=== PATIENT | male | born 1985 | race Caucasian/White ===

== ENCOUNTER 2019-03-21 21:59 | Inpatient (IN) | payer SELFPAY ==
--- NOTE | 2019-03-21 23:01 | EDPHYS ---
Physician Documentation [facility] Name: Brandan Small Age: 33 yrs Sex: Male : 1985 Arrival Date: 03/21/2019 Time: 22:00 Bed 2 Private MD: ED Physician Abraham Camp HPI: 03/22 04:00 This 33 yrs old Male presents to ER via Ambulatory with complaints of Spider kdr Bite. 04:00 The patient presents with cellulitis of the dorsal aspect of distal phalanx of left kdr middle finger, dorsal aspect of middle phalanx of left middle finger and dorsal aspect of proximal phalanx of left middle finger, the patient presents with a swollen area of the dorsal aspect of distal phalanx of left middle finger, dorsal aspect of middle phalanx of left middle finger and dorsal aspect of proximal phalanx of left middle finger. Description: erythematous, hot, raised, swollen, tense, warm. Onset: The symptoms/episode began/occurred gradually, 1 week(s) ago. Possible cause(s): insect sting, spider bite. Associated signs and symptoms: Pertinent positives: erythema, swelling. Modifying factors: the symptoms are alleviated by nothing, remaining still, the symptoms are aggravated by movement, pressure, squeezing the lesion and expressing the contents, touching. Severity of symptoms: At their worst the symptoms were mild, moderate, just prior to arrival, in the emergency department the symptoms are unchanged. The patient has not experienced similar symptoms in the past. The patient has not recently seen a physician. Historical: - Allergies: 03/21 22:17 No Known Allergies; ea - Home Meds: 22:17 None [Active]; ea - PMHx: 22:17 None; ea - PSHx: 22:17 None; ea - Immunization history:: Adult Immunizations up to date. - Social history:: Smoking status: Patient/guardian denies using tobacco. - Ebola Screening: : No symptoms or risks identified at this time. ROS: 03/22 04:00 Constitutional: Negative for fever, chills, and weight loss, Eyes: Negative for injury, kdr pain, redness, and discharge, Neck: Negative for injury, pain, and swelling, Cardiovascular: Negative for chest pain, palpitations, and edema, Respiratory: Negative for shortness of breath, cough, wheezing, and pleuritic chest pain, Abdomen/GI: Negative for abdominal pain, nausea, vomiting, diarrhea, and constipation, Back: Negative for injury and pain, : Negative for injury, bleeding, discharge, and swelling, Skin: Negative for injury, rash, and discoloration, Neuro: Negative for headache, weakness, numbness, tingling, and seizure activity. Psych: Negative for depression, anxiety, suicide ideation, homicidal ideation, and hallucinations, Allergy/Immunology: Negative for hives, rash, and allergies, Endocrine: Negative for neck swelling, polydipsia, polyuria, polyphagia, and marked weight changes, Hematologic/Lymphatic: Negative for swollen nodes, abnormal bleeding, and unusual bruising. MS/extremity: Positive for decreased range of motion, erythema, pain, swelling, tenderness, warmth, of the dorsal aspect of distal phalanx of left middle finger, dorsal aspect of middle phalanx of left middle finger and dorsal aspect of proximal phalanx of left middle finger. Skin: Positive for abscess, cellulitis, erythema, swelling, of the dorsal aspect of distal phalanx of left middle finger, dorsal aspect of middle phalanx of left middle finger and dorsal aspect of proximal phalanx of left middle finger. Exam: 04:00 Constitutional: This is a well developed, well nourished patient who is awake, alert, kdr and in no acute distress. 04:00 Musculoskeletal/extremity: Extremities: grossly normal except: noted in the dorsal aspect of distal phalanx of left middle finger, dorsal aspect of middle phalanx of left middle finger and dorsal aspect of proximal phalanx of left middle finger: decreased ROM, erythema, pain, swelling, tenderness. Vital Signs: 03/21 22:17 BP 148 / 97; Pulse 91; Resp 18; Temp 97.8; Pulse Ox 100% ; Weight 83.91 kg; Height 5 ea ft. 5 in. (165.10 cm); Pain 9/10; 03/22 00:30 BP 127 / 84; Pulse 79; Resp 18; Temp 97.7(TE); Pulse Ox 99% on R/A; ea 01:30 BP 116 / 82; Pulse 77; Resp 18; Pulse Ox 99% on R/A; ea 02:00 BP 120 / 82; Pulse 74; Resp 16; Temp 97.9; Pulse Ox 100% ; ea 03/21 22:17 Body Mass Index 30.79 (83.91 kg, 165.10 cm) ea MDM: 03/21 23:00 Patient medically screened. kdr 23:02 Physician consultation: Mo Gale MD would like admission per Dr. Ashutosh Boone. kdr 03/22 04:00 Data reviewed: vital signs, nurses notes, lab test result(s), radiologic studies. kdr Counseling: I had a detailed discussion with the patient and/or guardian regarding: the historical points, exam findings, and any diagnostic results supporting the discharge/admit diagnosis, lab results, radiology results, the need for further work-up and treatment in the hospital. 03/21 22:48 Order name: CBC with Diff ea 03/21 22:48 Order name: BMP ea 03/21 22:48 Order name: XRAY Hand LEFT 2 View ea 03/22 00:39 Order name: Regular EDMS 03/22 00:41 Order name: CONS Physician Consult EDMS Administered Medications: 03/21 23:23 Drug: Clindamycin 900 mg Route: IVPB; Infused Over: 30 mins; Site: right antecubital; ea 23:57 Follow up: Response: No adverse reaction; IV Status: Completed infusion; IV Intake: 50mlea 23:23 Drug: Bactrim (160 mg-800 mg (DS) 1 tablet Route: PO; ea 23:57 Follow up: Response: No adverse reaction ea 23:23 Drug: Pepcid 20 mg Route: IVP; Site: right antecubital; ea 23:57 Follow up: Response: No adverse reaction ea 23:50 Drug: Zofran 4 mg Route: IVP; Site: right hand; ea 03/22 00:30 Follow up: Response: No adverse reaction; Nausea is decreased ea 03/21 23:54 Drug: morphine 4 mg Route: IVP; Site: right hand; ea 03/22 00:30 Follow up: Response: No adverse reaction; RASS: Alert and Calm (0) ea Disposition: 03/21/19 23:00 Hospitalization ordered by Ashutosh Boone for Inpatient Admission. Preliminary diagnosis is Flexor Tenosynovitis: Left middle finger. - Bed requested for Telemetry/MedSurg (observation). - Status is Inpatient Admission. ea - Condition is Fair. - Problem is new. - Symptoms are unchanged. UTI on Admission? No Signatures: Dispatcher [employer] EDMS Abraham Camp MD MD kdr Garcia, Cindy, RN RN cg Faye Pruitt RN RN ea Corrections: (The following items were deleted from the chart) 00:39 03/21 23:00 Hospitalization Ordered by Ashutosh Boone for Inpatient Admission. cg Preliminary diagnosis is Flexor Tenosynovitis: Left middle finger. Bed requested for Telemetry/MedSurg (observation). Status is Inpatient Admission. Condition is Fair. Problem is new. Symptoms are unchanged. UTI on Admission? No. kdr 03/22 02:22 00:39 03/21/2019 23:00 Hospitalization Ordered by Ashutosh Boone for Inpatient ea Admission. Preliminary diagnosis is Flexor Tenosynovitis: Left middle finger. Bed requested for Telemetry/MedSurg (observation). Status is Inpatient Admission. Condition is Fair. Problem is new. Symptoms are unchanged. UTI on Admission? No. cg
--- NOTE | 2019-03-21 23:01 | ER ---
Nurse's Notes [facility] Name: Brandan Small Age: 33 yrs Sex: Male : 1985 Arrival Date: 03/21/2019 Time: 22:00 Bed 2 Private MD: Diagnosis: Flexor Tenosynovitis: Left middle finger Presentation: 03/21 22:13 Presenting complaint: Patient states: Pt reports he was bit by an insect about a week ea ago on the left middle finger. Pt reports the area has worsened and pain has increased since. Transition of care: patient was not received from another setting of care. Onset of symptoms was March 21, 2019. Risk Assessment: Do you want to hurt yourself or someone else? Patient reports no desire to harm self or others. Initial Sepsis Screen: Does the patient meet any 2 criteria? No. Patient's initial sepsis screen is negative. Does the patient have a suspected source of infection? Yes: Skin breakdown/wound. Care prior to arrival: Reports taking left over Augmentin. 22:13 Method Of Arrival: Ambulatory ea 22:13 Acuity: DEL 3 ea Triage Assessment: 22:18 General: Appears in no apparent distress. Behavior is calm, cooperative, appropriate ea for age. Pain: Complains of pain in left hand. Historical: - Allergies: 22:17 No Known Allergies; ea - Home Meds: 22:17 None [Active]; ea - PMHx: 22:17 None; ea - PSHx: 22:17 None; ea - Immunization history:: Adult Immunizations up to date. - Social history:: Smoking status: Patient/guardian denies using tobacco. - Ebola Screening: : No symptoms or risks identified at this time. Screenin:18 Abuse screen: Denies threats or abuse. Nutritional screening: No deficits noted. ea Tuberculosis screening: No symptoms or risk factors identified. Fall Risk None identified. Assessment: 22:18 General: Appears in no apparent distress. Behavior is calm, cooperative, appropriate ea for age. Pain: Complains of pain in left hand. Neuro: Level of Consciousness is awake, alert, obeys commands, Oriented to person, place, time, situation. Cardiovascular: Patient's skin is warm and dry. Respiratory: Airway is patent Respiratory effort is even, unlabored, Respiratory pattern is regular, symmetrical. Derm: black tissue noted to dorsal aspect of proximal left middle finger with redness and edema to surrounding area. Musculoskeletal: Swelling present in left hand Reports pain in left hand. 23:00 Reassessment: Patient and/or family updated on plan of care and expected duration. Pain ea level reassessed. Patient is alert, oriented x 3, equal unlabored respirations, skin warm/dry/pink. 03/22 01:28 Reassessment: Patient and/or family updated on plan of care and expected duration. Pain ea level reassessed. Patient is alert, oriented x 3, equal unlabored respirations, skin warm/dry/pink. 02:04 Reassessment: Patient and/or family updated on plan of care and expected duration. Pain ea level reassessed. Patient is alert, oriented x 3, equal unlabored respirations, skin warm/dry/pink. Report called to Gely ROCHE. 02:20 Reassessment: Patient and/or family updated on plan of care and expected duration. Pain ea level reassessed. Patient is alert, oriented x 3, equal unlabored respirations, skin warm/dry/pink. Pt taken via wheelchair, per tech. Pt tolerating well. No s/s of pain or discomfort noted at this time. Vital Signs: 03/21 22:17 BP 148 / 97; Pulse 91; Resp 18; Temp 97.8; Pulse Ox 100% ; Weight 83.91 kg; Height 5 ea ft. 5 in. (165.10 cm); Pain 9/10; 03/22 00:30 BP 127 / 84; Pulse 79; Resp 18; Temp 97.7(TE); Pulse Ox 99% on R/A; ea 01:30 BP 116 / 82; Pulse 77; Resp 18; Pulse Ox 99% on R/A; ea 02:00 BP 120 / 82; Pulse 74; Resp 16; Temp 97.9; Pulse Ox 100% ; ea 03/21 22:17 Body Mass Index 30.79 (83.91 kg, 165.10 cm) ea ED Course: 03/21 22:00 Patient arrived in ED. ds1 22:13 Faye Pruitt, MELCHOR is Primary Nurse. ea 22:16 Triage completed. ea 22:16 Patient has correct armband on for positive identification. Bed in low position. Call ea light in reach. Side rails up X2. 22:16 Arm band placed on right wrist. Patient placed in an exam room, on a stretcher, on ea pulse oximetry. 22:25 Inserted saline lock: 20 gauge in right antecubital area, using aseptic technique. jb5 Blood collected. 22:33 Abraham Camp MD is Attending Physician. kdr 22:58 Ashutosh Boone is Hospitalizing Provider. kdr 23:28 XRAY Hand LEFT 2 View In Process Unspecified. EDMS 23:50 Inserted saline lock: 22 gauge in right hand, using aseptic technique. ea 23:58 IV discontinued, intact, bleeding controlled, No redness/swelling at site. Pressure ea dressing applied, 20 G to RAC discontinued. 03/22 01:27 No provider procedures requiring assistance completed. ea Administered Medications: 03/21 23:23 Drug: Clindamycin 900 mg Route: IVPB; Infused Over: 30 mins; Site: right antecubital; ea 23:57 Follow up: Response: No adverse reaction; IV Status: Completed infusion; IV Intake: 50mlea 23:23 Drug: Bactrim (160 mg-800 mg (DS) 1 tablet Route: PO; ea 23:57 Follow up: Response: No adverse reaction ea 23:23 Drug: Pepcid 20 mg Route: IVP; Site: right antecubital; ea 23:57 Follow up: Response: No adverse reaction ea 23:50 Drug: Zofran 4 mg Route: IVP; Site: right hand; ea 03/22 00:30 Follow up: Response: No adverse reaction; Nausea is decreased ea 03/21 23:54 Drug: morphine 4 mg Route: IVP; Site: right hand; ea 03/22 00:30 Follow up: Response: No adverse reaction; RASS: Alert and Calm (0) ea Intake: 03/21 23:57 IV: 50ml; Total: 50ml. ea Outcome: 23:00 Decision to Hospitalize by Provider. kdr 23:30 Admitted to Med/surg accompanied by tech, via wheelchair, with chart, Report called to martine Hong RN 23:30 Instructed on the need for admit. 03/22 02:20 Condition: stable ea 02:22 Patient left the ED. ea Signatures: Dispatcher [employer] EDMS Abraham Camp MD MD kdr Liseth Ferraro ds1 Donna Johnson jb5 Pruitt, Faye, RN RN ea
[2019-03-21] MEDS ORDERED: SMZ./TMP. 800/160 MG TABLET ONE (23:17)
[2019-03-21] MEDS ORDERED: CLINDAMYCIN 900MG/D5W 900 MG/50 ML IVPB IV ONE (23:17)
[2019-03-21] MEDS ORDERED: FAMOTIDINE 20 MG/2 ML VIAL IV ONE (23:17)
[2019-03-21] MEDS ORDERED: MORPHINE 4 MG/ML SYR ONE (23:41)
[2019-03-21] MEDS ORDERED: ONDANSETRON 4 MG/2 ML VIAL ONE (23:41)
--- NOTE | 2019-03-21 23:46 | P.HP ---
Certification for Inpatient Patient admitted to: Inpatient With expected LOS: >2 Midnights Practitioner: I am a practitioner with admitting privileges, knowledge of patient current condition, hospital course, and medical plan of care. Services: Services provided to patient in accordance with Admission requirements found in Title 42 Section 412.3 of the Code of Federal Regulations Patient History Date of Service: 03/22/19 Reason for admission: Painful swelling of left middle finger History of Present Illness: Their 3-year-old male with known past medical history presents to emergency department with a complaint of painful swelling of the left middle finger of about 1 week duration. Patient stated he took some old antibitoics prescribed for his for 1 week without improvement. He does not know the name of the antibiotic. He stated his finger got progressively swollen and erythematous, he developed a black spot on the dorsum of the finger and he was able to express a little amount of pus out. He stated he now has pain spreading to involve the dorsum of his hand. Dr. Gale was contacted in the ED who recommended admission under the hospitalist service for IV antibiotics and for him to consult in the morning. Patient is admitted for further management. Allergies No Known Allergies Allergy (Verified 03/22/19 02:32) Home medications list reviewed: Yes (no medications) Home Medications: NK [No Home Meds] 03/22/19 - Past Medical/Surgical History Diabetic: No Past Medical History: Patient denies medical history Past Surgical History: Patient denies surgical history - Family History Father -: Heart disease, Other (see notes) (Schizophrenia) Mother Notes: short-term memory loss. low BP. anemic - Social History Smoking Status: Current every day smoker Alcohol use: Yes CD- Drugs: No Place of Residence: Home Review of Systems Other: General: No fever, no malaise, no unintentional weight loss. Eyes: No eye discharge, Respiratory: No cough, no shortness of breath. CVS: No chest pain, no palpitation, no lightheadedness. GI: No abdominal pain, no nausea no vomit, no constipation, no diarrhea. Genitourinary: No dysuria, no urinary frequency, no incontinence, no hematuria. Neurology: No headache, no asymmetric, weakness, no problem with swallowing. Except as documented, all other systems reviewed and negative. Physical Examination - Physical Exam General: Alert, In no apparent distress, Oriented x3 HEENT: Atraumatic, Normocephalic, PERRLA, Mucous membr. moist/pink Neck: Supple, 2+ carotid pulse no bruit, JVD not distended Respiratory: Clear to auscultation bilaterally, Normal air movement Cardiovascular: No edema, Regular rate/rhythm, Normal S1 S2, No murmurs Capillary refill: <2 Seconds Gastrointestinal: Normal bowel sounds, Soft and benign, Non-distended, No tenderness Musculoskeletal: Swelling (Left middle finger), Erythema (Left middle finger), Other (Tenderness elicited on the dorsum of the left hand) Neurological: Normal strength at 5/5 x4 extr, Cranial nerves 3-12 intact, Normal affect Lymphatics: No axilla or inguinal lymphadenopathy Assessment and Plan - Problems (Diagnosis) (1) Cellulitis of finger, left Current Visit: Yes Status: Acute (2) Tenosynovitis of finger and hand Current Visit: Yes Status: Acute - Plan Admit general medical floor Start IV clindamycin and Unasyn Pain management-IV Toradol Consult to hand surgeon-Dr. Gale to evaluate. - Advance Directives Does patient have a Living Will: No Does patient have a Durable POA for Healthcare: No
[2019-03-22] MEDS ORDERED: ONDANSETRON 4 MG/2 ML VIAL IV PRN (00:30)
[2019-03-22] MEDS ORDERED: ACETAMINOPHEN 500 MG TAB PO PRN (00:30)
[2019-03-22] MEDS ORDERED: CLINDAMYCIN 600MG/D5W 600 MG/50 ML BAG IV ONE (02:19)
[2019-03-22 03:25] VITALS: BMI 30.7
[2019-03-22 04:42] LABS: Urine Appearance CLEAR; Urine Bilirubin NEGATIVE (NEG); Urine Blood NEGATIVE (NEG); Urine Color YELLOW; Urine Glucose NEGATIVE (NEG); Urine Protein NEGATIVE (NEG); Urine Urobilinogen 0.2 mg/dL (0.2-1.0)
[2019-03-22 04:43] LABS: Urine Microscopic Reflex NO UMIC
[2019-03-22] MEDS: CLINDAMYCIN INJ 600 MG in NA CHLORIDE 0.9% 50 ML IV SCH ×2 (05:01→12:00)
[2019-03-22] MEDS ORDERED: AMPICILLIN/SULBACT 1.5GM VIAL IVPB SCH (06:00)
[2019-03-22 06:04] LABS: Absolute Lymphocytes (CBC) 2.6 K/uL (0.7-4.9); Basophils % 0.5 % (0-1.3); Hematocrit 38.8 % (39.6-49.0); Lymphocytes % 23.4 % (15.3-44.8); MPV 9.4 fL (7.6-11.3); Magnesium 2.1 mg/dL (1.8-2.4); Potassium 3.6 mmol/L (3.5-5.1); RBC Red Blood Cell Count 4.36 M/uL (4.33-5.43)
--- NOTE | 2019-03-22 07:51 | RAD REPORT ---
EXAM DESCRIPTION: RAD - Hand Left 2 View - 03/21/2019 11:32 pm CLINICAL HISTORY: Left hand pain status post insect bite FINDINGS: Soft tissue swelling is present about the third digit. No bony destructive lesions seen. No fracture or dislocation is seen. A limited two-view series was obtained
[2019-03-22] MEDS ORDERED: Ringers Lactate 1,000 ML IV ONE (08:22)
[2019-03-22] MEDS ORDERED: PROPOFOL 200 MG/20 ML VIAL IV ONE (08:29)
[2019-03-22] MEDS ORDERED: FENTANYL CITR 100 MCG/2 ML ONE (08:30)
[2019-03-22] MEDS ORDERED: MIDAZOLAM HCL 2 MG/2 ML INJ ONE (08:31)
[2019-03-22] MEDS ORDERED: ONDANSETRON 4 MG/2 ML VIAL ONE (08:31)
[2019-03-22] MEDS ORDERED: LIDOCAINE 1% MPF 2 ML AMPULE ONE (08:31)
[2019-03-22] MEDS ORDERED: POTASSIUM CL SA 10 MEQ TAB PO ONE (09:00)
[2019-03-22] MEDS ORDERED: KETOROLAC 30 MG/ML INJ ONE (09:16)
[2019-03-22] MEDS ORDERED: AMPICILLIN/SULBACT 1.5 GM in NA CHLORIDE 0.9% 100 ML IVPB SCH (12:00)
[2019-03-22] MEDS: KETOROLAC 30 MG/ML INJ IV PRN (12:37)
--- NOTE | 2019-03-22 12:41 | P.PN ---
Subjective Date of Service: 03/22/19 Primary Care Provider: none Chief Complaint: Painful swelling of left middle finger Subjective: Other (Patient stable this time. Patient NPO for intervention planned.) Physical Examination - Vital Signs Temperature: 97.8 F Blood Pressure: 134/69 Pulse: 83 Respirations: 16 Pulse Ox (%): 99 - Physical Exam General: Alert, In no apparent distress, Oriented x3, Cooperative HEENT: Atraumatic Neck: Supple Respiratory: Clear to auscultation bilaterally, Normal air movement Cardiovascular: Normal pulses, Regular rate/rhythm Gastrointestinal: Normal bowel sounds, Soft and benign, Non-distended Integumentary: Other (Abscess, erythema, swelling to the left 3rd finger. Swelling also noted to the hand) Neurological: Normal speech, Normal tone, Other (Some difficulty with range of motion of the left middle finger) - Studies Laboratory Data (last 24 hrs) 03/21/19 22:24: Sodium Cancelled, Potassium Cancelled, BUN Cancelled, Creatinine Cancelled, Glucose Cancelled Medications List Reviewed: Yes Assessment & Plan Discharge Plan: Home Plan to discharge in: 48 Hours Physician Review Additional Text: Impression: Left middle finger cellulitis with abscess likely related to spider bite Plan: Left middle finger cellulitis with abscess likely related to spider bite: Will continue with IV antibiotic therapy. Cultures obtained. Plastic surgery to take patient to the operating room today for irrigation and debridement. Will discuss with plastic surgery on plan of care. Would prefer to wait until cultures are finalized before discharge. Anticipate discharge in the next 2-3 days pending clinical improvement and on final results of cultures. I will turn the service over to Dr. Hammond tomorrow. I will go over the plan of care with her. Time Spent Managing Pts Care (In Minutes): 55
[2019-03-22] MEDS: VANCOMYCIN 1.5 GM in NA CHLORIDE 0.9% 500 ML IVPB SCH (14:11)
[2019-03-22] MEDS: MEPERIDINE HCL 50 MG/ML IM PRN (16:36)
--- NOTE | 2019-03-22 21:05 | OP ---
Surgeon: Mo Gale MD Online Merchandiser: Santiago. Preoperative Diagnosis: Infection of the left middle finger dorsal. Postoperative Diagnosis: Infection of the left middle finger dorsal. Procedure Performed: Excision of skin and subcutaneous tissue, incision and drainage of abscess. Anesthesia: General. Procedure In Detail: After satisfactory induction of general anesthesia, left hand was prepped with Betadine scrub, Betadine paint, dry sterile drapes were applied in usual manner. Arm was elevated. Tourniquet was inflated to 250 mmHg. Hand was placed on a [place] table. A incision was made over dorsum of the middle phalanx of the left middle finger . distally yellow-green pus was encountered consistent with MRI scan. Flaps were elevated as necessary , then the wound was scrub brushed and jet lavage irrigated with 3 L of dilute Betadine solution. Tourniquet released. Electrocautery used for hemostasis. Wound packed with Betadine soaked quarter-inch Nu Gauze and 2 inch Alicia. The patient tolerated the procedure well and returned to recovery. KONRAD/RASHEEDA Voice ID: [id number] Report ID: [id number] ABRAHAN
[2019-03-22] MEDS: HYDROCODONE/APAP 10/325 TAB PO PRN (22:18)
[2019-03-23] MEDS: VANCOMYCIN 1.5 GM in NA CHLORIDE 0.9% 500 ML IVPB SCH ×2 (01:33→12:16)
[2019-03-23] MEDS: MEPERIDINE HCL 50 MG/ML IM PRN ×2 (01:46→16:05)
[2019-03-23 05:51] LABS: Absolute Lymphocytes (CBC) 1.4 K/uL (0.7-4.9); Basophils % 0.7 % (0-1.3); Hematocrit 36.8 % (39.6-49.0); Lymphocytes % 15.6 % (15.3-44.8); RBC Red Blood Cell Count 4.14 M/uL (4.33-5.43)
[2019-03-23 06:09] LABS: Magnesium 2.4 mg/dL (1.8-2.4); Potassium 4.6 mmol/L (3.5-5.1)
--- NOTE | 2019-03-23 14:58 | P.PN ---
Subjective Date of Service: 03/23/19 Primary Care Provider: none Chief Complaint: Painful swelling of left middle finger Subjective: No C/O voiced, Improving Patient seen and examined at bedside. at bedside. Chart reviewed and case discussed with nursing staff. Patient status post debridement, postop day#1 Doing well, no complaints this morning. Acute events noted overnight. Review of Systems 10-point ROS is otherwise unremarkable Physical Examination - Vital Signs Temperature: 98.1 F Blood Pressure: 109/66 Pulse: 69 Respirations: 20 Pulse Ox (%): 98 - Physical Exam General: Alert, In no apparent distress, Oriented x3 HEENT: Atraumatic, PERRLA, EOMI Neck: Supple, JVD not distended Respiratory: Clear to auscultation bilaterally, Normal air movement Cardiovascular: Regular rate/rhythm, Normal S1 S2 Gastrointestinal: Normal bowel sounds, No tenderness Musculoskeletal: No tenderness Integumentary: Other (Abscess, erythema, swelling to the left 3rd finger. Swelling also noted to the hand. Bandaged this morning, clear dry intact.) Neurological: Normal speech, Normal tone, Normal affect Lymphatics: No axilla or inguinal lymphadenopathy - Studies Medications List Reviewed: Yes Assessment And Plan - Current Problems (Diagnosis) (1) Cellulitis of finger, left Current Visit: Yes Status: Acute Plan: Likely secondary to a spider bite. -Will continue with IV antibiotic therapy. -Cultures obtained, pending results. - POD#1, status post debridement by Dr. Gale. He will likely require further debridement/washout in the OR, per surgeon. - Plan DVT prophylaxis: Ambulation GI prophylaxis: None Diet: Regular Disposition: Pending potential washout in the OR by surgery. Discharge Plan: Home Plan to discharge in: 72 Hours
[2019-03-23] MEDS: HYDROCODONE/APAP 10/325 TAB PO PRN (20:50)
[2019-03-24] MEDS: MEPERIDINE HCL 50 MG/ML IM PRN ×3 (00:42→16:47)
[2019-03-24] MEDS: VANCOMYCIN 1.5 GM in NA CHLORIDE 0.9% 500 ML IVPB SCH ×2 (01:39→13:39)
[2019-03-24 06:13] LABS: Absolute Lymphocytes (CBC) 1.6 K/uL (0.7-4.9); Basophils % 0.3 % (0-1.3); Hematocrit 39.2 % (39.6-49.0); Lymphocytes % 21.5 % (15.3-44.8); MPV 9.2 fL (7.6-11.3)
[2019-03-24 06:22] LABS: Magnesium 2.5 mg/dL (1.8-2.4); Potassium 4.6 mmol/L (3.5-5.1)
--- NOTE | 2019-03-24 10:05 | P.PN ---
Subjective Date of Service: 03/24/19 Primary Care Provider: none Chief Complaint: Painful swelling of left middle finger Subjective: Improving Patient seen and examined at bedside. at bedside. Chart reviewed and case discussed with nursing staff. Patient status post debridement, postop day#2 Doing well, no complaints this morning. No Acute events noted overnight. Review of Systems 10-point ROS is otherwise unremarkable Physical Examination - Vital Signs Temperature: 99.4 F Blood Pressure: 108/63 Pulse: 82 Respirations: 20 Pulse Ox (%): 98 - Physical Exam General: Alert, In no apparent distress, Oriented x3 HEENT: Atraumatic, PERRLA, EOMI Neck: Supple, JVD not distended Respiratory: Clear to auscultation bilaterally, Normal air movement Cardiovascular: Regular rate/rhythm, Normal S1 S2 Gastrointestinal: Normal bowel sounds, No tenderness Musculoskeletal: No tenderness Integumentary: No rashes, Other (Left 2nd finger, 5 x 3 open wound ) Neurological: Normal speech, Normal tone, Normal affect Lymphatics: No axilla or inguinal lymphadenopathy - Studies Medications List Reviewed: Yes Assessment And Plan - Current Problems (Diagnosis) (1) Cellulitis of finger, left Current Visit: Yes Status: Acute Plan: Likely secondary to a spider bite. -Will continue with IV antibiotic therapy. May be able to convert to PO bactrim upon discharge. -Cultures obtained, positive for MRSA. - POD#2, status post debridement by Dr. Gale. He will likely require further debridement/washout in the OR, per surgeon. (2) MRSA (methicillin resistant staph aureus) culture positive Current Visit: Yes Status: Acute - Plan DVT prophylaxis: Ambulation GI prophylaxis: None Diet: Regular Disposition: Pending potential washout in the OR by surgery. Will discharge once cleared by Surgeon
[2019-03-24] MEDS: HYDROCODONE/APAP 10/325 TAB PO PRN ×2 (11:55→20:44)
[2019-03-24] MEDS: NICOTINE 21 MG/PAT TD SCH (14:29)
[2019-03-24] MEDS: KETOROLAC 30 MG/ML INJ IV PRN (18:00)
[2019-03-25] MEDS: VANCOMYCIN 1.5 GM in NA CHLORIDE 0.9% 500 ML IVPB SCH ×2 (01:03→12:38)
[2019-03-25] MEDS: KETOROLAC 30 MG/ML INJ IV PRN (01:03)
[2019-03-25] MEDS: MEPERIDINE HCL 50 MG/ML IM PRN ×2 (04:25→12:52)
[2019-03-25 04:33] LABS: Absolute Lymphocytes (CBC) 1.6 K/uL (0.7-4.9); Basophils % 0.6 % (0-1.3); Hematocrit 39.7 % (39.6-49.0); Lymphocytes % 23.6 % (15.3-44.8); MPV 8.7 fL (7.6-11.3); RBC Red Blood Cell Count 4.51 M/uL (4.33-5.43)
[2019-03-25 04:46] LABS: Magnesium 2.4 mg/dL (1.8-2.4); Potassium 4.3 mmol/L (3.5-5.1)
[2019-03-25] MEDS ORDERED: PROPOFOL 200 MG/20 ML VIAL IV ONE (08:47)
[2019-03-25] MEDS ORDERED: MIDAZOLAM HCL 2 MG/2 ML INJ ONE (08:48)
[2019-03-25] MEDS ORDERED: LIDOCAINE 1% MPF 5 ML VIAL ONE (08:48)
[2019-03-25] MEDS ORDERED: FENTANYL CITR 100 MCG/2 ML ONE (08:48)
[2019-03-25] MEDS: NICOTINE 21 MG/PAT TD SCH (09:00)
[2019-03-25] MEDS ORDERED: Ringers Lactate 1,000 ML IV ONE (09:02)
[2019-03-25] MEDS ORDERED: KETOROLAC 30 MG/ML INJ ONE (10:13)
[2019-03-25] MEDS ORDERED: ONDANSETRON 4 MG/2 ML VIAL ONE (10:13)
[2019-03-25] MEDS: HYDROMORPHONE HCL 1 MG/ML INJ ONE ×2 (10:47→11:12)
[2019-03-25] MEDS ORDERED: HYDROMORPHONE HCL 1 MG/ML INJ ONE (11:24)
[2019-03-25 11:30] VITALS: O2SAT 96
[2019-03-25 12:37] VITALS: BP 102/56; TEMP 97.9
--- NOTE | 2019-03-25 17:15 | P.DS ---
Admission Date: 03/22/19 Discharge Date: 03/25/19 Primary Care Provider: none Disposition: ROUTINE DISCHARGE Discharge Condition: GOOD Reason for Admission: Painful swelling of left middle finger Consultations: Plastic surgeon Procedures: Incision and drainage - Problems (1) Cellulitis of finger, left Status: Acute (2) MRSA (methicillin resistant staph aureus) culture positive Status: Acute (3) Tenosynovitis of finger and hand Status: Acute Brief History of Present Illness: Their 33-year-old male with known past medical history presents to emergency department with a complaint of painful swelling of the left middle finger of about 1 week duration. Patient stated he took some old antibitoics prescribed for his for 1 week without improvement. He does not know the name of the antibiotic. He stated his finger got progressively swollen and erythematous, he developed a black spot on the dorsum of the finger and he was able to express a little amount of pus out. He stated he now has pain spreading to involve the dorsum of his hand. Dr. Gale was contacted in the ED who recommended admission under the hospitalist service for IV antibiotics and for him to consult in the morning. Patient is admitted for further management. Hospital Course: Overall during the hospital stay patient remained stable Patient was initially admitted to the hospital for left-sided cancel) Tinel synovitis. Plastic surgery was consulted. Patient was taken for incision and drainage. Wound cultures were also collected at that time. Patient was started on IV antibiotics on admission as well. Patient's wound culture were positive for MRSA. Upon discussing further with plastic surgery was felt that patient would do well with oral antibiotics given the fact the patient had a washout here in the hospital. Patient had another incision and drainage done here in the hospital in the next 24 hr after admission had marked improvement in his symptoms and thus was discharged home under stable condition. Patient is to follow up with plastic surgery in about 1-2 days post discharge will be followed up in wound healing Center as well. Patient demonstrated understanding regarding the treatment plan was agreeable and thus was discharged home under stable condition was given oral Bactrim to be taken for total of 14 days. Vital Signs/Physical Exam: Temp Pulse Resp BP Pulse Ox 97.9 F 62 16 102/56 L 95 03/25/19 12:00 03/25/19 12:00 03/25/19 12:52 03/25/19 12:00 03/25/19 12:52 General: Alert, In no apparent distress HEENT: Atraumatic, PERRLA, EOMI Neck: Supple, JVD not distended Respiratory: Clear to auscultation bilaterally, Normal air movement Cardiovascular: Regular rate/rhythm, Normal S1 S2 Gastrointestinal: Normal bowel sounds, No tenderness Musculoskeletal: Tenderness Integumentary: No rashes Neurological: Normal speech, Normal tone, Normal affect Lymphatics: No axilla or inguinal lymphadenopathy Laboratory Data at Discharge: WBC 6.8 K/uL (4.3-10.9) 03/25/19 04:23 Hgb 13.3 g/dL (13.6-17.9) L 03/25/19 04:23 Hct 39.7 % (39.6-49.0) 03/25/19 04:23 Plt Count 315 K/uL (152-406) 03/25/19 04:23 Sodium 140 mmol/L (136-145) 03/25/19 04:23 Potassium 4.3 mmol/L (3.5-5.1) 03/25/19 04:23 BUN 20 mg/dL (7-18) H 03/25/19 04:23 Creatinine 1.08 mg/dL (0.55-1.3) 03/25/19 04:23 Glucose 102 mg/dL (74-106) 03/25/19 04:23 Magnesium 2.4 mg/dL (1.8-2.4) 03/25/19 04:23 Home Medications: Smz./Tmp. [Bactrim Ds 800 MG/160 MG] 1 tab PO BID #28 tab 03/25/19 New Medications: Smz./Tmp. [Bactrim Ds 800 MG/160 MG] 1 tab PO BID #28 tab Diet: Regular Activity: Ad korina Followup: Mo Gale MD [ACTIVE - CAN ADMIT] - 03/27/19 (f/u with Dr Gale at [facility] on monday at 2pm)
--- NOTE | 2019-03-25 22:50 | OP ---
Surgeon: Mo Gale MD Preoperative Diagnosis: Open wound of his left middle finger. Postoperative Diagnosis: Open wound of his left middle finger. Procedure Performed: Debridement of skin, subcu tissue with flap closure. Anesthesia: General. Procedure In Detail: After satisfactory induction of general anesthesia, the left hand was prepped w ith Betadine scrub, Betadine paint, dry sterile drapes placed in the usual manner. The arm was eleva j carlos, exsanguinated with an Esmarch, tourniquet inflated to 250 mmHg. Hand placed on [place] table. Skin and subcutaneous tissues were debrided with scalpel and forceps, curetted and then jet lavage ir rigated with 3 L of dilute Betadine solution. Scrubbed with Betadine soaked scrub brush. Then the p atient underwent flap advanced, and after the edges were debrided, closed with 4-0 Prolene horizontal mattress with simple sutures. Dressed with Xeroform, 2 inch Alicia after tourniquet released. Patie nt tolerated the procedure well and returned to recovery room. He also had the splint applied with t he PIP deep in extension. KONRAD/RASHEEDA Voice ID: [id number] Report ID: [id number]
== END 2019-03-25 14:00 | disposition home or self-care (01) | DRG 575 ==
LOC: ER 21:59 → 2ND 03-22 00:52
PROVIDERS: ADMIT Internal Medicine; ATTEND Internal Medicine
PROC: 0H9GXZX Drainage of Left Hand Skin, External Approach, Diagnostic (ICD-10-PCS; 2019-03-22)
PROC: 0JDK0ZZ Extraction of Left Hand Subcutaneous Tissue and Fascia, Open Approach (ICD-10-PCS; principal; 2019-03-22 09:00)
PROC: 0HXGXZZ Transfer Left Hand Skin, External Approach (ICD-10-PCS; 2019-03-25)
PROC: 0JDK0ZZ Extraction of Left Hand Subcutaneous Tissue and Fascia, Open Approach (ICD-10-PCS; 2019-03-25)
DX: L03.012 Cellulitis of left finger (principal); B95.62 Methicillin resistant Staphylococcus aureus infection as the cause of diseases classified elsewhere; M65.9 Synovitis and tenosynovitis, unspecified; T63.301A Toxic effect of unspecified spider venom, accidental (unintentional), initial encounter
CPT/HCPCS: 36415; 80048; 80202; 81003; 83735; 85025; 87070; 87075; 87077; 87186; 87205; 88304; 96365; 96375; 99285; J0295; J1170; J2001; J2175; J2250; J2405; J2704; J3010